=== PATIENT | female | born 1965 | race Caucasian/White ===

== ENCOUNTER 2020-10-24 08:02 | Outpatient (REF) | payer MEDICARE, MEDICAID, SELFPAY ==
--- NOTE | 2020-10-24 09:24 | MHC.AU.P13 ---
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 Barbara reports she has requested her Primary Care Provider to make a referral to [facility] Dr. Satinder Salas to determine her options for further Cochlear Implant use. Medication List: Venlafaxine ER, Losartan Potassium, Atorvastatin, DoxycyclineHyclate, Metronidazole Cream, Azelaic Acid Cream Otoscopy: Right Ear: Unremarkable Left Ear: Unremarkable Tympanometry: Right Ear: Reduced Middle Ear Compliance (Type As) Left Ear: Normal Middle Ear System (Type A) Otoacoustic Emissions Right Ear Results: Not performed at today's visit. Left Ear Results: Not performed at today's visit. Hearing Evaluation: Transducer(s) Used: Insert Earphones Bone Conduction Method: Conventional Audiometry Stimuli Used: Pure Tones Right Ear: Description of Hearing: Profound sensorineural hearing loss through all frequencies with no responses to any pure tones presented Left Ear: Description of Hearing: Profound sensorineural hearing loss with responses at 250 and 500 Hz being obtained at 90 dB HL sloping to 115 dB HL at 4000 Hz. Speech Dectection Threshold (SDT): Right Ear: No Response Left Ear: 95 dB HL Speech Program Associate Threshold (SRT) Method Used: Not performed at today's visit. Word Discrimination: Method: Not performed at today's visit. Comparison: Compared to the most recent evaluation: N/A Previous results are not available for review Recommendations: Recommendations: No further audiological action is indicated at this time. Recommendations (Other): Barbara will pursue medical consultation with [facility] Dr. Satinder Salas to determine if further Cochlear Implant use is possible. Diagnosis: Primary Diagnosis: H90.3 Bilateral Sensorineural Hearing Loss Services Performed: Services Performed: Comprehensive Audiological Evaluation (CPT 80922) Tympanometry (CPT 41027) Signature: Provider: Cristin Cardona, [facility]
== END 2020-10-24 08:03 | disposition home or self-care (01) ==
LOC: HO.SH 08:02
PROVIDERS: PCP Family Medicine; Visit Provider Family Medicine
DX: H90.3 Sensorineural hearing loss, bilateral (principal)
CPT/HCPCS: 92557; 92567

== ENCOUNTER 2020-10-24 08:46 | Outpatient (REF) | payer MEDICARE, MEDICAID, SELFPAY | END 2020-10-24 08:47 | disposition home or self-care (01) | LOC: HO.LAB 08:46 | PROVIDERS: PCP Family Medicine; Visit Provider Internal Medicine | DX: Z20.828 Contact with and (suspected) exposure to other viral communicable diseases (principal); Z01.10 Encounter for examination of ears and hearing without abnormal findings | CPT/HCPCS: 92557; 92567; C9803; U0003 ==

== ENCOUNTER 2022-02-01 15:54 | Emergency (ER) | payer MEDICARE, MEDICAID, SELFPAY ==
[2022-02-01 16:18] VITALS: BP 175/85; PULSE 89; RESP 18; TEMP 36.5; O2SAT 98; BMI 26.9
--- NOTE | 2022-02-01 16:22 | ECG_ITS ---
Test Reason : HYPERTENSION Blood Pressure : / mmHG Vent. Rate : 080 BPM Atrial Rate : 080 BPM P-R Int : 142 ms QRS Dur : 094 ms QT Int : 420 ms P-R-T Axes : 040 057 054 degrees QTc Int : 484 ms Normal sinus rhythm with sinus arrhythmia Prolonged QT Abnormal ECG When compared with ECG of 02-MAY-2007 21:58, No significant change was found Referred By: Generic ED Physician Electronically Signed By:ALTAGRACIA LAWRENCE
[2022-02-01 17:11] LABS: Basophils Percent Auto 0.9 % (0-2); Eosinophils Absolute Auto 0.1 X10*3/uL (0.0-0.4); Eosinophils Percent Auto 2.7 % (0-4); Hematocrit 41.7 % (37.0-47.0); Hemoglobin 14.5 g/dl (12.0-16.0); Imm Gran Abs Auto 0.01 X10*3/uL (0.00-0.03); Imm Gran Pct Auto 0.2 % (0.0-0.4); Lymphocytes Absolute Auto 1.8 X10*3/uL (1.2-4.9); Lymphocytes Percent Auto 40.8 % (20-40); MANUAL DIFF FLAG NO; Mean Corpuscular HGB Conc 34.8 g/dl (31.0-35.0); Mean Corpuscular Hemoglobin 33.1 pg (27.0-33.0); Mean Corpuscular Volume 95.2 fL (80.0-98.0); Mean Platelet Volume 9.2 fL (9.4-12.3); Monocytes Absolute Auto 0.5 X10*3/uL (0.1-1.2); Monocytes Percent Auto 11.6 % (2-11); Neutrophils Percent Auto 43.8 % (45-73); Platelet Count 235 X10*3/uL (160-400); Red Blood Count 4.38 X10*6/uL (4.20-5.50); Red Cell Distribution Width 12.4 % (11.0-16.0); White Blood Count 4.5 X10*3/uL (4.8-10.8)
[2022-02-01 17:37] LABS: Anion Gap 12 (12-20); Blood Urea Nitrogen 23 mg/dL (9-16); Calcium 10.3 mg/dL (8.4-10.2); Carbon Dioxide 31 mmol/L (22-29); Chloride 103 mmol/L (96-108); Creatinine Clr Calc Pharmacy 71.6; Estimated Glomerular Filt Rate > 60; Glucose Random 108 mg/dL (60-115); Potassium 3.9 mmol/L (3.3-5.1); Sodium 142 mmol/L (135-145)
[2022-02-01 17:46] LABS: Troponin-I High Sensitivity 18.8 ng/L (<3.5-17.0)
--- NOTE | 2022-02-01 19:37 | PC.NURSE ---
ATTEMPTED TO CALL PATIENT INTO ED. PT IS ASL, CHECKED WRIST BANDS ON PATIENT'S THAT WERE WAITING. NO FREDERICK NOTED TO BE IN WAITING ROOM
--- NOTE | 2022-02-01 21:49 | ED_ITS ---
HPI - General Adult General Chief complaint: General Medical Stated complaint: High blood pressure Time Seen by Provider: 02/01/22 21:24 Source: patient Limitations: language barrier History of Present Illness HPI narrative: patient's history of hypertension used to be on losartan 50 mg daily unable to get that medication so PCP started on valsartan initially 80 mg blood pressure continued to be high changed to 160 mg 3 days ago blood pressure still read 175/85 on arrival rechecked patient's blood pressure was 198/95. Patient den ied any headache no nausea no vomiting does complain not feeling well no urinary complaints no abdominal pain complains of slight ankle edema no shortness of breath or chest pain or palpitation Related Data Previous Rx's Medication Instructions Recorded amlodipine 5 mg tablet (Norvasc) 5 mg PO DAILY #30 tab 02/01/22 Allergies Allergy/AdvReac Type Severity Reaction Status Date / Time Demerol Allergy Unknown Uncoded 10/14/11 00:00 Valium Allergy Unknown Uncoded 10/14/11 00:00 Review of Systems Review of Systems: Yes all other systems are reviewed and are negative [facility] Social History Social History Advance Directives: No Advance Directives Information Provided: No Physical Exam ED Vital Signs: Vital Signs - 24 hr 02/01/22 16:18 02/01/22 23:26 Temperature 97.7 F Pulse Rate 89 77 Respiratory Rate 18 18 Blood Pressure 175/85 H 178/90 H Pulse Oximetry 98 BMI result Body Mass Index 26.9 Appearance: Alert. Oriented X3. No acute distress. patient is deaf Eyes: no pallor or icterus ENT: Pharynx normal. Oral Mucosa moist Neck: Normal inspection. Neck supple. CVS: Normal heart rate and rhythm. Pulses normal. Respiratory: No respiratory distress. Equal air entry bilateral, no wheezing/rales/rhonchi Abdomen: Soft and nontender. Bowel sounds are present, no mass palpable, no CVA tenderness Skin: Skin warm and dry. Normal skin color. Normal skin turgor. Extremities: No lower extremity edema. No calf tenderness Neuro: Oriented X 3. No motor deficit. No sensory deficit.No cerebellar signs , cranial nerves II-XII intact Medical Decision Making [facility] Narrative Medical decision making narrative: patient with essential hypertension uncontrolled by medication Angelitovan at will add Norvasc 5 mg daily along with that advised to continue her Diovan 160 mg and follow with PCP Lab Data Lab results reviewed: Yes I reviewed the patient's lab results. Result diagrams: 02/01/22 17:06 02/01/22 17:06 Labs: Lab Results 02/01/22 02/01/22 02/01/22 Range/Units 17:06 17:06 17:06 WBC 4.5 L (4.8-10.8) X10*3/uL RBC 4.38 (4.20-5.50) X10*6/uL Hgb 14.5 (12.0-16.0) g/dl Hct 41.7 (37.0-47.0) % MCV 95.2 (80.0-98.0) fL MCH 33.1 H (27.0-33.0) pg MCHC 34.8 (31.0-35.0) g/dl RDW 12.4 (11.0-16.0) % Plt Count 235 (160-400) X10*3/uL MPV 9.2 L (9.4-12.3) fL Immature Gran % (Auto) 0.2 (0.0-0.4) % Neut % (Auto) 43.8 L (45-73) % Lymph % (Auto) 40.8 H (20-40) % [place] % (Auto) 11.6 H (2-11) % Eos % (Auto) 2.7 (0-4) % Baso % (Auto) 0.9 (0-2) % Lymph # (Auto) 1.8 (1.2-4.9) X10*3/uL [place] # (Auto) 0.5 (0.1-1.2) X10*3/uL Eos # (Auto) 0.1 (0.0-0.4) X10*3/uL Baso # (Auto) 0.0 (0.0-0.2) X10*3/uL Abs Immat Gran (auto) 0.01 (0.00-0.03) X10*3/uL Absolute Neuts (auto) 2.0 (2.0-8.3) x10*3/uL Absolute Nucleated RBC 0.000 (0.0-0.012) X10*3/uL Nucleated RBC % (auto) 0.0 (0.0-0.2) /100WBC Sodium 142 (135-145) mmol/L Potassium 3.9 (3.3-5.1) mmol/L Chloride 103 (96-108) mmol/L Carbon Dioxide 31 H (22-29) mmol/L Anion Gap 12 (12-20) BUN 23 H (9-16) mg/dL Creatinine 0.86 (0.5-1.4) mg/dL Estim Creat Clear Calc 71.6 Estimated GFR > 60 Random Glucose 108 (60-115) mg/dL Calcium 10.3 H (8.4-10.2) mg/dL Magnesium 2.3 (1.6-2.6) mg/dL Troponin I High Sens 18.8 H (<3.5-17.0) ng/L 02/01/22 Range/Units 22:34 WBC (4.8-10.8) X10*3/uL RBC (4.20-5.50) X10*6/uL Hgb (12.0-16.0) g/dl Hct (37.0-47.0) % MCV (80.0-98.0) fL MCH (27.0-33.0) pg MCHC (31.0-35.0) g/dl RDW (11.0-16.0) % Plt Count (160-400) X10*3/uL MPV (9.4-12.3) fL Immature Gran % (Auto) (0.0-0.4) % Neut % (Auto) (45-73) % Lymph % (Auto) (20-40) % [place] % (Auto) (2-11) % Eos % (Auto) (0-4) % Baso % (Auto) (0-2) % Lymph # (Auto) (1.2-4.9) X10*3/uL [place] # (Auto) (0.1-1.2) X10*3/uL Eos # (Auto) (0.0-0.4) X10*3/uL Baso # (Auto) (0.0-0.2) X10*3/uL Abs Immat Gran (auto) (0.00-0.03) X10*3/uL Absolute Neuts (auto) (2.0-8.3) x10*3/uL Absolute Nucleated RBC (0.0-0.012) X10*3/uL Nucleated RBC % (auto) (0.0-0.2) /100WBC Sodium (135-145) mmol/L Potassium (3.3-5.1) mmol/L Chloride (96-108) mmol/L Carbon Dioxide (22-29) mmol/L Anion Gap (12-20) BUN (9-16) mg/dL Creatinine (0.5-1.4) mg/dL Estim Creat Clear Calc Estimated GFR Random Glucose (60-115) mg/dL Calcium (8.4-10.2) mg/dL Magnesium (1.6-2.6) mg/dL Troponin I High Sens 13.3 (<3.5-17.0) ng/L ECG Data Attestation: I personally reviewed and interpreted this ECG as follows: Interpretation: normal sinus rhythm QT interval [address]-T changes no acute ischemia heart rate 80 beats per minute Discharge Plan Discharge Clinical Impression: Hypertension Patient Disposition: Home, Self-Care Instructions: Chronic Hypertension (ED) Additional Instructions: decrease salt intake continue Valsartan 160 mg daily start on amlodipine 5 mg daily check blood pressure daily should be less than 140/90 follow with PCP Prescriptions: New amlodipine [Norvasc] 5 mg tablet 5 mg PO DAILY Qty: 30 0RF
[2022-02-01 22:00] LABS: Magnesium 2.3 mg/dL (1.6-2.6)
[2022-02-01] MEDS: amLODIPine Besylate 5 MG TABLET PO (22:47)
[2022-02-01 22:59] LABS: Troponin-I High Sensitivity 13.3 ng/L (<3.5-17.0)
[2022-02-01 23:26] VITALS: BP 178/90; PULSE 77; RESP 18
[2022-02-02 00:15] VITALS: BP 174/94; PULSE 73; RESP 14; O2SAT 97
== END 2022-02-02 00:26 | disposition home or self-care (01) ==
PROVIDERS: Emergency Medicine; Emergency Provider Internal Medicine; PCP Student in an Organized Health Care Education/Training Program
DX: I10 Essential (primary) hypertension (principal)
CPT/HCPCS: 36415; 80048; 83735; 84484; 85025; 93005; 99283; 99284

== ENCOUNTER 2024-10-19 12:27 | Emergency (ER) | payer OTHER, SELFPAY ==
--- NOTE | ~2024-10-19 | US_ITS ---
EXAMINATION: US CHEST CLINICAL INFORMATION: Possible abscess or thoracic spine COMPARISON: None available. TECHNIQUE: Limited ultrasound of the area of interest in the upper mid back FINDINGS: Complex cystic lesion in the subcutaneous soft tissue measuring 1.6 x 0.7 x 1.2 cm. US/US chest IMPRESSION: Complex lesion in the subcutaneous soft tissues under the area of interest, most consistent with an epidermal inclusion cyst or superficial abscess. Electronically signed by: Clarence Mcneil MD 10/19/2024 08:39 PM PHIL
[2024-10-19 14:28] VITALS: BP 130/77; PULSE 89; RESP 18; TEMP 36.4; O2SAT 95; BMI 28.3
--- NOTE | 2024-10-19 14:33 | ED.SKABFB ---
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 Area is very painful, worse with palpation. She denies any spontaneous drainage or bleeding. Denies fevers, chills, body aches. Denies known injury to the area. complaint: abscess/boil Onset (ago): day(s) Location: back Quality: aching Pain Consistency: colicky Exacerbating factors: palpation Context: none Associated symptoms: denies other symptoms Treatments prior to arrival: none Related Data Previous Rx's ?Medication ?Instructions ?Recorded amlodipine 5 mg tablet (Norvasc) 5 mg PO DAILY #30 tabs 02/01/22 cephalexin 500 mg capsule 500 mg PO QID 7 days #28 caps 10/19/24 Allergies Allergy/AdvReac Type Severity Reaction Status Date / Time Demerol Allergy Unknown Agitated Uncoded 10/19/24 14:30 Valium Allergy Unknown Agitated Uncoded 10/19/24 14:30 Review of Systems Review of Systems: As per HPI Yes all other systems are reviewed and are negative Constitutional: Constitutional: Reports as per HPI [facility] Social History Social History Advance Directives: No Advance Directives Information Provided: No Physical Exam Vital Signs: Vital Signs: Last Vital Signs Temp 98.2 F 10/19/24 18:34 Pulse 70 10/19/24 18:34 Resp 18 10/19/24 18:34 BP 150/76 H 10/19/24 18:34 Pulse Ox 97 10/19/24 18:34 O2 Del Method Room Air 10/19/24 18:34 BMI result Body Mass Index 28.3 Vital signs have been reviewed and appear to be correct. Blood pressure normal. Heart rate normal. Respiratory rate normal. Temperature normal. Oxygen saturation normal. Const: General: cooperative, healthy appearing and no acute distress Orientation/consciousness: oriented to person, oriented to place, oriented to time and patient oriented x3 Limitations: no limitations HEENT: Head: Yes normocephalic and Yes atraumatic Ears: external ears normal General nose exam: Normal external nose present Face and sinus: Yes face symmetric Mouth: oropharynx normal and moist mucous membranes Throat: Yes uvula midline Eyes: Pupils: Equal, round and reactive pupils present Neck: Neck: Yes normal visual inspection and Yes supple Resp: Effort & Inspection: normal respiratory effort and able to speak in complete sentences Auscultation: clear to auscultation bilaterally Cardio: Rate: regular rate Rhythm: regular rhythm Heart sounds: S1 normal heart sound present and S2 normal heart sound present GI: Palpation (GI): Soft to palpation and nontender Auscultation: normoactive bowel sounds : General: Yes no CVA tenderness Back/Spine/Pelvis: Back: no CVA tenderness Thoracic/Lumbar Spine: other (fluctuant area of swelling and erythema just left of midline thoracic spine) Skin: General skin exam: elasticity normal and turgor normal Neuro: General: oriented to person, oriented to place, oriented to time, patient oriented x3, moves all extremities, no focal motor deficits and CN's II-XI intact bilaterally Cranial nerves: Yes Equal, round and reactive pupils present Cognition (Neuro): normal cognition Extrem: General: Yes full ROM, Yes no pedal edema and Yes no calf tenderness Psych: Mental Status: mental status grossly normal Affect: normal affect Thought process: Normal thought process present Course Course Course Narrative: This is a rapid medical exam performed by Zahraa Rivera PA-C. The patient is a 59-year-old deaf female, who presents with tender swelling on back x 6 days. Patient noticed a swelling last week, it has increased in size and has become more painful. Denies drainage from the site or fever. Patient has a fluctuant swelling mid back , is tender to palpation. No indication for labs or imaging, it is likely an infected cyst versus abscess, requires I and D. the patient is hemodynamically stable and can return to the waiting room pending her full assessment. Medications Administered Discontinued Medications Generic Name Dose Route Start Last Admin Trade Name Freq PRN Reason Stop Dose Admin Lidocaine HCl 5 ml 10/19/24 17:09 10/19/24 17:36 Lidocaine Hcl 1 % Mpf 5 Ml Vial INFILTRATI 10/19/24 17:10 5 ml ONCE ONE Administration Medical Decision Making Medical Decision Making MDM Narrative: Patient is a 59-year-old hearing impaired female presenting to the emergency department with complaint of tender area of swelling to back since the day before . On exam patient is awake, A+Ox3, VS WNL, afebrile, normal neurological exam without focal deficits, physical exam findings as above. Given reported symptoms and physical exam findings, initial differential includes abscess, cyst, lipoma. Ultrasound notable for complex lesion consistent with inclusion cyst or superficial abscess. My interpretation is in agreement with the radiologist's interpretation. Needle aspiration performed as per procedure note, patient tolerated well. Will place on keflex, refer to general surgery for reoccurrence. Return precautions discussed. Patient verbalized understanding of and agreement with plan. 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 Differential Diagnosis Differential Diagnoses: The differential diagnosis associated with the presentation includes As per [facility] Independent Interpretation I performed an independent interpretation of an: Ultrasound Interpretation: Ultrasound notable for complex lesion consistent with cyst or superficial abscess. Radiology Impression Discussion of test interpretation with radiology: I have reviewed the radiologist's reading. Radiologist Impression: US/US chest IMPRESSION: Complex lesion in the subcutaneous soft tissues under the area of interest, most consistent with an epidermal inclusion cyst or superficial abscess. External Record Review External record reviewed: Inpatient record, Office record and Outpatient record Prescription Management I considered prescription management with: Antibiotic Procedures Abscess I/D Site: back Side (if applicable): left Local Anesthetic: lidocaine 1% Amount of anesthesia used (mL): 1 Technique: needle aspiration Amount of fluid expressed (mL): 1 Sent for culture/gram staining?: No Irrigation: No Packing used?: none Discharge Plan Discharge Clinical Impression: Abscess of back Patient Disposition: Home, Self-Care Instructions: Abscess (ED), Abscess Follow-up (ED) Additional Instructions: You were evaluated in the emergency department today for an area of swelling to your back, also known as an abscess. The area was drained with a needle. You are being prescribed a course of antibiotics, complete the full course as prescribed. If the swelling reoccurs, you may need to have the area surgically excised (removed) by a surgeon. Call the general surgery office to schedule and appointment. Return to the emergency department if you develop worsening redness, swelling, thick yellow drainage, develop fever, or any other new or concerning symptoms. Prescriptions: New cephalexin 500 mg capsule 500 mg PO QID 7 Days Qty: 28 0RF No Action amlodipine [Norvasc] 5 mg tablet 5 mg PO DAILY Qty: 30 0RF [place] [facility] [Provider Group] Interventions: ED Discharge Assessment Last Done: 10/19/24 18:34 Discharge Date/Time: 10/19/24 18:34 Print Language: [place] Sign Language
[2024-10-19 16:56] VITALS: BP 150/76; PULSE 70; RESP 18; TEMP 36.8; O2SAT 97
--- NOTE | 2024-10-19 17:03 | PC.NURSE ---
pt to ultrasound at this time.
[2024-10-19] MEDS: Lidocaine HCl 1 % MPF 5 ML VIAL INFILTRATI (17:36)
[2024-10-19 18:34] VITALS: BP 150/76; PULSE 70; RESP 18; TEMP 36.8; O2SAT 97
== END 2024-10-19 18:34 | disposition home or self-care (01) ==
PROVIDERS: Emergency Provider Emergency Medicine Emergency Medical Services
DX: L02.212 Cutaneous abscess of back [any part, except buttock and flank] (principal)
CPT/HCPCS: 10060; 76604; 99282; 99284; J2003